=== PATIENT | male | born 1990 | race African-American/Black ===

== ENCOUNTER 2018-10-31 19:06 | Emergency (ER) | payer OTHER ==
[~2018-10-31] VITALS: Ht 154.9 cm; Wt 70.8 kg
[2018-10-31 19:25] LABS: URINE BILIRUBIN NEGATIVE (Negative); URINE BLOOD NEGATIVE (Negative); URINE CLARITY CLEAR; URINE COLOR YELLOW; URINE GLUCOSE-RANDOM NEGATIVE (Negative); URINE KETONES TRACE (Negative); URINE LEUKOCYTES-REFLEX NEGATIVE (Negative); URINE NITRITE-REFLEX NEGATIVE (Negative); URINE PROTEIN NEGATIVE (Negative); URINE SPECIFIC GRAVITY 1.025 (1.005-1.030); URINE UROBILINOGEN 0.2 E.U./dl (0.2-1.0)
[2018-10-31 20:17] VITALS: BP 131/62
== END 2018-10-31 20:24 | disposition home or self-care (01) ==
LOC: M.ERS 19:06
PROVIDERS: Nurse Practitioner
DX: R30.0 Dysuria (principal); R30.9 Painful micturition, unspecified; Z20.2 Contact with and (suspected) exposure to infections with a predominantly sexual mode of transmission

== ENCOUNTER 2019-12-04 15:16 | Emergency (ER) | payer OTHER ==
[~2019-12-04] VITALS: Ht 185.4 cm; Wt 68.0 kg
[2019-12-04 15:22] VITALS: BP 119/73
[2019-12-04] MEDS ORDERED: PEPCID20 MG PO ×2 (15:50→15:55)
[2019-12-04] MEDS ORDERED: OMEPRAZOLE 20 M20 M1 PO ×2 (15:50→15:55)
== END 2019-12-04 16:00 | disposition home or self-care (01) ==
LOC: M.ERS 15:16
DX: K21.9 Gastro-esophageal reflux disease without esophagitis (principal); Z90.49 Acquired absence of other specified parts of digestive tract

== ENCOUNTER 2020-08-26 14:55 | Emergency (ER) | payer OTHER ==
[~2020-08-26] VITALS: Ht 185.4 cm; Wt 70.3 kg
[~2020-08-26 14:55] MED LIST: OMEPRAZOLE 20 M20 M1 PO; PEPCID20 MG PO
[2020-08-26 15:20] LABS: URINE BILIRUBIN NEGATIVE (Negative); URINE BLOOD NEGATIVE (Negative); URINE CLARITY CLEAR; URINE COLOR YELLOW; URINE GLUCOSE-RANDOM NEGATIVE (Negative); URINE KETONES NEGATIVE (Negative); URINE LEUKOCYTES-REFLEX NEGATIVE (Negative); URINE NITRITE-REFLEX NEGATIVE (Negative); URINE PROTEIN TRACE (Negative)
[2020-08-26 16:17] VITALS: BP 122/74
== END 2020-08-26 16:17 | disposition home or self-care (01) ==
LOC: M.ERS 14:55
PROVIDERS: Nurse Practitioner Family
DX: N34.2 Other urethritis (principal); Z90.49 Acquired absence of other specified parts of digestive tract